=== PATIENT | female | born 1950 | race American Indian/Alaskan Native ===

== ENCOUNTER 2021-07-05 11:43 | Inpatient (IN) | payer OTHER ==
[~2021-07-05] VITALS: Ht 157.5 cm; Wt 78.5 kg
[2021-07-05 11:58] VITALS: BP 179/68
--- NOTE | 2021-07-05 12:51 | NUR ---
BLOODWORK COLLECTED AND WALKED OVER TO LAB
[2021-07-05 13:12] LABS: BASOPHILS % (AUTO) 0.2 % (0.0-2.0); EOSINOPHILS # (AUTO) 0.1 K/uL (0-0.4); EOSINOPHILS % (AUTO) 1.5 % (0.0-4.0); HEMATOCRIT 36.2 % (36-48); HEMOGLOBIN 12.1 g/dL (12.0-16.0); LYMPHOCYTES # (AUTO) 1.9 K/uL (2.5-16.5); LYMPHOCYTES % (AUTO) 29.9 % (20.5-51.1); MEAN CORPUSCULAR HEMOGLOBIN 32 pg (27-31); MEAN CORPUSCULAR HGB CONC 33 g/dL (33-37); MEAN CORPUSCULAR VOLUME 94.5 fL (80-94); MONOCYTES # (AUTO) 0.5 K/uL (0.8-1.0); MONOCYTES % (AUTO) 7.2 % (1.7-9.3); NEUTROPHILS # (AUTO) 3.8 K/uL (1.8-7.7); NEUTROPHILS % (AUTO) 61.2 % (42.2-75.2); PLATELET COUNT (AUTO) 239 K/uL (140-450); RED BLOOD CELL COUNT(AUTO) 3.83 MIL/uL (4.20-5.40); RED CELL DISTRIBUTION WIDTH 13.7 % (11.6-13.7); WHITE BLOOD COUNT (AUTO) 6.3 K/uL (4.8-10.8)
[2021-07-05 13:39] LABS: ALBUMIN 3.4 g/dL (3.4-5.0); ANION GAP 11.5 (8-16); CREATININE 0.7 mg/dL (0.6-1.3); POTASSIUM 4.5 mmol/L (3.5-5.1); TOTAL BILIRUBIN 0.5 mg/dL (0.0-1.0)
[2021-07-05] MEDS ORDERED: NACL 0.9% 1,000 ML IV ONE (14:15)
[2021-07-05] MEDS ORDERED: ASPIRIN 325 MG TAB PO ONE (14:15)
[2021-07-05] MEDS ORDERED: methylPREDNISolone SS 125 MG in WATER STERILE 2 ML IV ONE (15:05)
[2021-07-05] MEDS ORDERED: WATER STERILE 0 ML MC ONE (15:10)
[2021-07-05] MEDS ORDERED: methylPREDNISolone SS 125 MG/2 ML VIAL ONE (15:10)
--- NOTE | 2021-07-05 15:18 | NUR ---
PER TELE NEURO INITIATED; CONNECT ID;[id number]
[2021-07-05] MEDS ORDERED: VITD400 PO (16:30)
[2021-07-05] MEDS ORDERED: ATOR10TA PO (16:30)
[2021-07-05] MEDS ORDERED: CALER120 PO (16:30)
--- NOTE | 2021-07-05 16:38 | NUR ---
70/F BIB WITH C/O HEADACHE, RIGHT ARM WEAKNESS AND CHEST PRESSURE X2 DAYS, REPORTS THROBBING NON RADIATING PAIN THAT IS INTERMITTENT. PATIENT STATES SHE CALLED HER PCP TO INFORM HIM OF HER SYMPTOMS AND WAS REFERRED TO COME TO THE ED. PATIENT DENIES N/V/D, DIZZINESS, SOB, FEVERS OR CHILLS, PATIENT DENIES PAIN AT THIS TIME.
[2021-07-05] MEDS ORDERED: diphenhydrAMINE 50 MG/ML VIAL IVP ONE (18:05)
[2021-07-05] MEDS ORDERED: KCL 20 MEQ/WATER INJ PREMIX 200 ML IV PRN (19:15)
[2021-07-05] MEDS ORDERED: MAG SULF 2000 MG/WATER PREMIX 50 ML IV PRN (19:15)
[2021-07-05] MEDS ORDERED: MORPHINE SULFATE 4 MG/ML SYR IVP PRN (19:15)
[2021-07-05] MEDS ORDERED: ONDANSETRON 4 MG/2 ML VIAL IVP PRN (19:15)
[2021-07-05] MEDS ORDERED: HYDROcodone/APAP 5/325 MG 1 TAB TAB PO PRN (19:15)
[2021-07-05] MEDS ORDERED: POTASSIUM CHLORIDE 10 MEQ TABER PO PRN (19:15)
[2021-07-05] MEDS ORDERED: MAGNESIUM OXIDE 400 MG TAB PO PRN (19:15)
[2021-07-05] MEDS ORDERED: ACETAMINOPHEN 325 MG TAB PO PRN (19:15)
--- NOTE | 2021-07-05 20:00 | NUR ---
PATIENT TAKEN TO CT VIA W/C
--- NOTE | 2021-07-05 22:30 | NUR ---
PATIENT SITTING UP IN CHAIR WITH EYES CLOSED, WILL CONTINUE TO MONITOR. ALL NEEDS MET AT THIS TIME.
--- NOTE | 2021-07-05 23:31 | NUR ---
Pt report given to JAYA ISAAC. Transfer of care at this time.
[2021-07-06 08:56] LABS: HEMATOCRIT 40.7 % (36-48); HEMOGLOBIN 13.5 g/dL (12.0-16.0); LYMPHOCYTES # (AUTO) 1.2 K/uL (2.5-16.5); MEAN CORPUSCULAR HEMOGLOBIN 32 pg (27-31); MEAN CORPUSCULAR HGB CONC 33 g/dL (33-37); MEAN CORPUSCULAR VOLUME 95.4 fL (80-94); MONOCYTES # (AUTO) 0.2 K/uL (0.8-1.0); MONOCYTES % (AUTO) 1.9 % (1.7-9.3); NEUTROPHILS # (AUTO) 8.6 K/uL (1.8-7.7); NEUTROPHILS % (AUTO) 86.1 % (42.2-75.2); PLATELET COUNT (AUTO) 277 K/uL (140-450); RED BLOOD CELL COUNT(AUTO) 4.26 MIL/uL (4.20-5.40); RED CELL DISTRIBUTION WIDTH 14.1 % (11.6-13.7)
[2021-07-06 09:34] LABS: ALBUMIN 3.4 g/dL (3.4-5.0); ANION GAP 15.5 (8-16); CARBON DIOXIDE 23.8 mmol/L (21-32); CREATININE 0.9 mg/dL (0.6-1.3); POTASSIUM 4.3 mmol/L (3.5-5.1); TOTAL BILIRUBIN 0.3 mg/dL (0.0-1.0)
--- NOTE | 2021-07-06 11:53 | NUR ---
BIB WHEELCHAIR FROM [facility] TO ER BED 14
--- NOTE | 2021-07-06 13:00 | NUR ---
Pt moved to bed 14 on [facility]
--- NOTE | 2021-07-06 13:04 | NUR ---
Pt report given to Shakila LAKE from [facility]. Transfer of care at this time.
[2021-07-06] MEDS: DOCUSATE SODIUM 100 MG GELCAP PO SCH (13:06)
--- NOTE | 2021-07-06 13:06 | NUR ---
Pt refused colace at this time. Had a BM today.
--- NOTE | 2021-07-06 15:52 | NUR ---
PATIENT HAS BEEN SCREENED AND CATEGORIZED MODERATE NUTRITION RISK. PATIENT WILL BE SEEN WITHIN 3-5 DAYS OF ADMISSION. / CAROL FIG[address]
--- NOTE | 2021-07-06 19:34 | NUR ---
Pt report given to TIMOTHY LAKE. Transfer of care at this time.
--- NOTE | 2021-07-06 20:00 | NUR ---
Covid swab done and handed to Nury LAKE
--- NOTE | 2021-07-06 22:00 | NUR ---
RESTING WITH EYES CLOSED, RESPIRATIONS REGULAR AND UNLABORED
--- NOTE | 2021-07-07 04:00 | NUR ---
Patient appears to be resting comfortably in bed. Vital Signs within normal limits. Respirations even and unlabored.
--- NOTE | 2021-07-07 07:30 | NUR ---
REPORT RECEIVED FROM TIMOTHY LAKE FOR CONTINUITY OF CARE. PT IS A&OX4. ON ROOM AIR. IV SITE RT HAND 22G, INTACT, PATENT, GOOD BLOOD RETURN. SKIN INTACT, WARM AND DRY. WILL CONTINUE TO MONITOR.
[2021-07-07] MEDS ORDERED: ASPIRIN 325 MG TAB ONE (08:12)
[2021-07-07 08:19] LABS: BASOPHILS % (AUTO) 0.4 % (0.0-2.0); EOSINOPHILS % (AUTO) 0.3 % (0.0-4.0); HEMATOCRIT 37.6 % (36-48); HEMOGLOBIN 12.3 g/dL (12.0-16.0); LYMPHOCYTES # (AUTO) 2.6 K/uL (2.5-16.5); LYMPHOCYTES % (AUTO) 24.3 % (20.5-51.1); MEAN CORPUSCULAR HEMOGLOBIN 31 pg (27-31); MEAN CORPUSCULAR HGB CONC 33 g/dL (33-37); MEAN CORPUSCULAR VOLUME 95.9 fL (80-94); MONOCYTES # (AUTO) 0.7 K/uL (0.8-1.0); MONOCYTES % (AUTO) 6.4 % (1.7-9.3); NEUTROPHILS # (AUTO) 7.2 K/uL (1.8-7.7); NEUTROPHILS % (AUTO) 68.6 % (42.2-75.2); PLATELET COUNT (AUTO) 219 K/uL (140-450); RED BLOOD CELL COUNT(AUTO) 3.93 MIL/uL (4.20-5.40); RED CELL DISTRIBUTION WIDTH 14.2 % (11.6-13.7); WHITE BLOOD COUNT (AUTO) 10.5 K/uL (4.8-10.8)
--- NOTE | 2021-07-07 08:46 | NUR ---
DC PLANNING: CM SPOKE WITH [facility], CM NOT AVAILABLE TO TALK, MESSAGE LEFT THAT NEUROLOGIST IS RECOMMENDING MRI, NEED AUTH AND DIRECTION ON WHERE TO SEND. CM WILL FOLLOW. Addendum: 07/07/21 at 1547 by Essence Beltran CM Called & spoke with Jose Alfredo at [facility], ph [phone] opt 1 fax [phone], states not showing in system to fax face sheet & clinicals, she is the one following pt. Informed UR & going to fax. I faxed order/pt info to Jose Alfredo for MRI. Addendum: 07/08/21 at 1659 by Kyra Holguin CM DC PLANNING: CM SPOKE WITH JOSE ALFREDO AT [facility], NO CONTRACTED FACILITIES IN NETWORK ABLE TO DO MRI. CM WILL FOLLOW. Addendum: 07/12/21 at 1502 by Kyra Holguin CM DC PLANNING: DANA SPOKE WITH DIANA AT [facility] ([phone] OPT 1), NO CONTRACTED HOSPITALS YET TO TRANSFER THE PATIENT TO FOR AN MRI. DANA WILL FOLLOW. Addendum: 07/13/21 at 1738 by Kyra Holguin DC PLANNING: DANA SPOKE WITH THE VP DATA DR MCKINNEY AT [facility], NO CONTRACTED FACILITIES ARE ABLE TO ACCEPT THE PATIENT FOR MRI. DR KELLOGG SPOKE WITH DR ALEXANDER, HE WANTS THE MRI DONE BEFORE PATIENT DISCHARGES. DANA ATTEMPTED TO REACH [facility] TO ASK FOR AN AUTH TO SEND THE PATIENT TO [place] FOR HER MRI. DANA WILL FOLLOW UP. Addendum: 07/14/21 at 1133 by Kyra Holguin CM DC PLANNING: [facility] AUTH TO ARRANGE AN MRI AT [place] FOR THE PATIENT. AUTH # [id number], TRANSPORT AUTH WILL BE PROVIDED ONCE [facility] HAS A SCHEDULED TIME FOR CARDIOVASCULAR SONOGRAPHER. CM SPOKE WITH [facility], THEY WILL FAX THE MRI FORM, CM WILL THEN FAX COMPLETED CLINICAL PACKET TO THEM, AND WILL FOLLOW. Addendum: 07/14/21 at 1402 by Kyra Holguin CM DC PLANNING: PATIENT TO BE PICKED UP BY [facility] BLS LEVEL AT 1550, [facility] SCHEDULED FOR A WAIT AND RETURN TRANSPORT. AUTH NUMBER FOR [facility] PER JOSE ALFREDO AT [facility] [id number], JOSE ALFREDO WILL FAX THE AUTH DIRECTLY TO [facility]. ABOVE ENDORSED TO PATIENTS NURSE ASIA CM TO FOLLOW.
[2021-07-07] MEDS ORDERED: ASPIRIN 325 MG TABEC PO SCH (09:00)
[2021-07-07] MEDS: ASPIRIN 325 MG TABEC PO SCH (09:02)
[2021-07-07] MEDS: DOCUSATE SODIUM 100 MG GELCAP PO SCH (09:02)
--- NOTE | 2021-07-07 09:05 | NUR ---
PATIENT MOVED VIA GURNEY TO BED 3.
[2021-07-07 09:18] LABS: ALBUMIN 2.9 g/dL (3.4-5.0); ANION GAP 12.9 (8-16); CARBON DIOXIDE 27.2 mmol/L (21-32); CREATININE 0.9 mg/dL (0.6-1.3); POTASSIUM 4.1 mmol/L (3.5-5.1); TOTAL BILIRUBIN 0.3 mg/dL (0.0-1.0)
--- NOTE | 2021-07-07 09:24 | NUR ---
PT EATING BREAKFAST TRAY
--- NOTE | 2021-07-07 10:30 | NUR ---
Patient resting in bed. Vital Signs within normal limits. Respirations even and unlabored. Chest rise is symmetrical. Will continue to monitor.
--- NOTE | 2021-07-07 12:14 | NUR ---
PT EATING LUNCH TRAY
--- NOTE | 2021-07-07 12:17 | NUR ---
CALLED PT'S QUINTON CARUSO. UPDATED ON PT STATUS, ALL QUESTIONS AND CONCERNS ANSWERED AT THIS TIME.
--- NOTE | 2021-07-07 14:00 | NUR ---
Patient resting in bed. Vital Signs within normal limits. Respirations even and unlabored. Chest rise is symmetrical. Will continue to monitor.
--- NOTE | 2021-07-07 16:15 | NUR ---
Patient resting in bed. Vital Signs within normal limits. Respirations even and unlabored. Chest rise is symmetrical. Will continue to monitor.
--- NOTE | 2021-07-07 18:08 | NUR ---
PT EATING DINNER TRAY
--- NOTE | 2021-07-07 19:24 | NUR ---
Pt report given to TIMOTHY LAKE. Transfer of care at this time.
--- NOTE | 2021-07-07 20:00 | NUR ---
AWAKE, SPEAKING ON CELL PHONE IN NAD
--- NOTE | 2021-07-07 20:15 | NUR ---
PTS DAUGHTER CALLED AND WAS UPDATED. WOULD LIKE TO BE INFORMED WHEN PT TRANSFERED FOR MRI
--- NOTE | 2021-07-07 22:05 | NUR ---
REPORT CALLED TO JAYA GONZALEZ
--- NOTE | 2021-07-07 22:20 | NUR ---
TRANSFERED TO [address] VIA GURNEY ACCOMPANIED BY ERT & RN. ATTACHED TO WIRER MAINTENANCE, REMAINS SR.
--- NOTE | 2021-07-08 01:11 | NUR ---
PATIENT TO FLOOR 2225 AWAKE ALERT NO C/O PATIENT STATES PUT GOWN ON PATIENT AND FALL RISK SLIPPERS. PATIENT CAN AMBULATE WELL STEADY ON FEET. PATIENT IS ROOM AIR, SAT 97 %. PATIENT LUNGS DIMINISH TO LISTEN SKIN INTACT. SINUS ON MONITOR. PATIENT HAS INFLUENZA B BUT DON,T HEAR A COUGH.. PATIENT IS COVID _.NO DISTRESS NOTED. PATIENT CAME FROM [facility] 2225.
[2021-07-08 04:00] VITALS: BP 127/69
[2021-07-08 06:24] LABS: BASOPHILS % (AUTO) 0.3 % (0.0-2.0); EOSINOPHILS # (AUTO) 0.1 K/uL (0-0.4); EOSINOPHILS % (AUTO) 1.2 % (0.0-4.0); HEMATOCRIT 36.9 % (36-48); HEMOGLOBIN 12.4 g/dL (12.0-16.0); LYMPHOCYTES # (AUTO) 2.2 K/uL (2.5-16.5); LYMPHOCYTES % (AUTO) 28.4 % (20.5-51.1); MEAN CORPUSCULAR HEMOGLOBIN 32 pg (27-31); MEAN CORPUSCULAR HGB CONC 34 g/dL (33-37); MONOCYTES # (AUTO) 0.5 K/uL (0.8-1.0); MONOCYTES % (AUTO) 6.5 % (1.7-9.3); NEUTROPHILS % (AUTO) 63.6 % (42.2-75.2); PLATELET COUNT (AUTO) 238 K/uL (140-450); RED BLOOD CELL COUNT(AUTO) 3.89 MIL/uL (4.20-5.40); RED CELL DISTRIBUTION WIDTH 14.2 % (11.6-13.7); WHITE BLOOD COUNT (AUTO) 7.8 K/uL (4.8-10.8)
[2021-07-08 07:01] LABS: ANION GAP 11.7 (8-16); CARBON DIOXIDE 28.2 mmol/L (21-32); CREATININE 0.8 mg/dL (0.6-1.3); POTASSIUM 3.9 mmol/L (3.5-5.1); TOTAL BILIRUBIN 0.3 mg/dL (0.0-1.0)
--- NOTE | 2021-07-08 07:30 | NUR ---
RECEIVED REPORT FROM SEED YEAST OPERATOR NURSE
[2021-07-08 08:00] VITALS: BP 154/61
--- NOTE | 2021-07-08 09:20 | NUR ---
DUE MEDS GIVEN. TOLERATED WELL, NO WEAKNESS NOTED, NO C/O HEADACHE
[2021-07-08] MEDS: DOCUSATE SODIUM 100 MG GELCAP PO SCH (09:33)
[2021-07-08] MEDS: ASPIRIN 325 MG TABEC PO SCH (09:33)
--- NOTE | 2021-07-08 11:25 | NUR ---
SEEN AND EXAMINED BY DR STEWART, UPDATED ON POC
[2021-07-08 12:00] VITALS: BP 152/52
[2021-07-08] MEDS ORDERED: PANTOPRAZOLE 40 MG INJ VIAL ONE (13:21)
--- NOTE | 2021-07-08 13:30 | NUR ---
DR STEWART SPOKE TO PT'S DAUGHTER ZULY ON PHONE TO GIVE UPDATE
--- NOTE | 2021-07-08 15:28 | NUR ---
Discharge Planning: ANA has contacted [facility] ([phone] option 1) 4 times and left message regarding pt's need for MRI. ANA received call back from [facility] stating that [facility] has no record of this patient being admitted to [facility] [place]. ANA reviewed admitting documentation over phone with [facility]. ANA has asked [facility] Admitting to assist with notifying [facility]. [facility] stated that she cannot assist with anything until patient is showing in her system. ANA reviewed notes that clinicals have been faxed to [facility]. Addendum: 07/08/21 at 1551 by Donna Sandoval CM ANA received call from [facility]; pt was found in their system; Tracking Number: [id number]. VOLTMETER OPERATOR has asked [facility] to work on finding a hospital where the pt can have MRI.
[2021-07-08 16:00] VITALS: BP 165/71
[2021-07-08] MEDS ORDERED: VERAPAMIL 120 MG CAPER PO SCH (17:50)
--- NOTE | 2021-07-08 18:48 | NUR ---
NO RESPIRATORY DISTRESS, NO S/S OF PAIN. WILL ENDORSE TO NEXT SHIFT
[2021-07-08 20:00] VITALS: BP 132/63
--- NOTE | 2021-07-08 20:00 | NUR ---
RECEIVED PATIENT FROM DAY SHIFT NURSE. PATIENT IN BED, NO RESPIRATORY DISTRESS NOTED
[2021-07-08] MEDS: ENOXAPARIN 40 MG/0.4 ML SYR SUBQ SCH (22:30)
[2021-07-08] MEDS: VERAPAMIL 40 MG TAB PO SCH (22:32)
[2021-07-09] VITALS: BP 136/57
[2021-07-09 04:00] VITALS: BP 130/61
[2021-07-09 06:13] LABS: BASOPHILS % (AUTO) 0.3 % (0.0-2.0); EOSINOPHILS # (AUTO) 0.1 K/uL (0-0.4); EOSINOPHILS % (AUTO) 1.4 % (0.0-4.0); HEMATOCRIT 35.6 % (36-48); HEMOGLOBIN 12.2 g/dL (12.0-16.0); MEAN CORPUSCULAR HEMOGLOBIN 32 pg (27-31); MEAN CORPUSCULAR HGB CONC 34 g/dL (33-37); MEAN CORPUSCULAR VOLUME 94.2 fL (80-94); MONOCYTES # (AUTO) 0.5 K/uL (0.8-1.0); MONOCYTES % (AUTO) 6.7 % (1.7-9.3); NEUTROPHILS # (AUTO) 4.2 K/uL (1.8-7.7); NEUTROPHILS % (AUTO) 61.6 % (42.2-75.2); PLATELET COUNT (AUTO) 253 K/uL (140-450); RED BLOOD CELL COUNT(AUTO) 3.78 MIL/uL (4.20-5.40); WHITE BLOOD COUNT (AUTO) 6.8 K/uL (4.8-10.8)
[2021-07-09 06:51] LABS: ALBUMIN 2.9 g/dL (3.4-5.0); ANION GAP 11.3 (8-16); CARBON DIOXIDE 27.6 mmol/L (21-32); CREATININE 0.8 mg/dL (0.6-1.3); POTASSIUM 3.9 mmol/L (3.5-5.1); TOTAL BILIRUBIN 0.3 mg/dL (0.0-1.0)
--- NOTE | 2021-07-09 07:40 | NUR ---
RECVEIVED PT FROM NIGHT RN, PT IS AWAKE AND SEATED ON THE BED, SIDE RAILS ARE UP ANSD CALL LIGHT WITHIN REACH, IV LINE NOTED ON THE LEFT HAND G. 24 ON SALINE LOCK, PT IS ON RA, NO SIGN OF DISTRESS NOTED AND WILL CONTINUE TO MONITOR PT.
[2021-07-09 08:00] VITALS: BP 158/72
[2021-07-09] MEDS: DOCUSATE SODIUM 100 MG GELCAP PO SCH (08:46)
[2021-07-09] MEDS: ATORVASTATIN 20 MG TAB PO SCH (08:47)
[2021-07-09] MEDS: ASPIRIN 325 MG TABEC PO SCH (08:47)
[2021-07-09] MEDS: ENOXAPARIN 40 MG/0.4 ML SYR SUBQ SCH (08:47)
[2021-07-09] MEDS: VERAPAMIL 40 MG TAB PO SCH ×2 (08:50→21:36)
--- NOTE | 2021-07-09 08:50 | NUR ---
PT WAS GIVEN THE SCHEDULED AM MEDICATIONS NOW, TOLERATED AND WILL CONTINUE TO MONITOR PT.
[2021-07-09 12:00] VITALS: BP 134/60
--- NOTE | 2021-07-09 14:15 | NUR ---
PT IS SLEEPING NOW AND NO SIGN OF DISTRESS NOTED.
[2021-07-09 16:00] VITALS: BP 158/76
--- NOTE | 2021-07-09 18:00 | NUR ---
PT IS EATING HER DINNER NOW.
--- NOTE | 2021-07-09 19:33 | NUR ---
ENDORSED PT O NIGHT RN FOR CONTINUITY OF CARE.
[2021-07-09 20:00] VITALS: BP 140/58
--- NOTE | 2021-07-09 21:40 | NUR ---
DUE MEDICATION GIVEN. PATIENT AWAKE, ALERT ON ROOM AIR. NO SOB NOTED. SAFETY MEASURES IN PLACE. CALL LIGHT WITHIN REACH.
[2021-07-10] VITALS: BP 148/70
[2021-07-10 04:00] VITALS: BP 152/62
[2021-07-10 06:53] LABS: BASOPHILS % (AUTO) 0.2 % (0.0-2.0); EOSINOPHILS # (AUTO) 0.1 K/uL (0-0.4); EOSINOPHILS % (AUTO) 1.8 % (0.0-4.0); HEMATOCRIT 38.9 % (36-48); HEMOGLOBIN 13.1 g/dL (12.0-16.0); LYMPHOCYTES # (AUTO) 1.9 K/uL (2.5-16.5); LYMPHOCYTES % (AUTO) 27.9 % (20.5-51.1); MEAN CORPUSCULAR HEMOGLOBIN 32 pg (27-31); MEAN CORPUSCULAR HGB CONC 34 g/dL (33-37); MEAN CORPUSCULAR VOLUME 94.3 fL (80-94); MONOCYTES # (AUTO) 0.5 K/uL (0.8-1.0); MONOCYTES % (AUTO) 6.9 % (1.7-9.3); NEUTROPHILS # (AUTO) 4.3 K/uL (1.8-7.7); NEUTROPHILS % (AUTO) 63.2 % (42.2-75.2); PLATELET COUNT (AUTO) 247 K/uL (140-450); RED BLOOD CELL COUNT(AUTO) 4.13 MIL/uL (4.20-5.40); RED CELL DISTRIBUTION WIDTH 13.9 % (11.6-13.7); WHITE BLOOD COUNT (AUTO) 6.8 K/uL (4.8-10.8)
[2021-07-10 07:15] LABS: ALBUMIN 2.8 g/dL (3.4-5.0); ANION GAP 11.3 (8-16); CARBON DIOXIDE 28.6 mmol/L (21-32); CREATININE 0.8 mg/dL (0.6-1.3); POTASSIUM 3.9 mmol/L (3.5-5.1); TOTAL BILIRUBIN 0.4 mg/dL (0.0-1.0)
--- NOTE | 2021-07-10 07:35 | NUR ---
ENDORSED PATIENT TO AM NURSE FOR CONTINUITY OF CARE.
--- NOTE | 2021-07-10 07:40 | NUR ---
RECEIVED REPORT FROM TUBE PUSHER FOR CONTINUITY OF CARE. PATIENT ALERT AWAKE ORIENTED NOT IN ANY DISTRESS NOTED. WITH SALINE LOCK ON HER LEFT WRIST G. 24 DRY AND INTACT. DENIES ANY PAIN AT THIS TIME. ON MONITOR SHOWS SR. BED IN LOW POSITION. CALL LIGHT WITHIN REACH. NEEDS ATTENDED. WILL CONTINUE TO MONITOR.
[2021-07-10 08:00] VITALS: BP 154/72
[2021-07-10] MEDS: DOCUSATE SODIUM 100 MG GELCAP PO SCH (08:38)
[2021-07-10] MEDS: VERAPAMIL 40 MG TAB PO SCH ×2 (08:39→21:50)
[2021-07-10] MEDS: ATORVASTATIN 20 MG TAB PO SCH (08:39)
[2021-07-10] MEDS: ASPIRIN 325 MG TABEC PO SCH (08:40)
[2021-07-10] MEDS: ENOXAPARIN 40 MG/0.4 ML SYR SUBQ SCH (08:40)
--- NOTE | 2021-07-10 09:00 | NUR ---
DUE MEDICATION GIVEN AND TOLERATED WELL.
[2021-07-10 12:00] VITALS: BP 140/58
--- NOTE | 2021-07-10 13:32 | NUR ---
PATIENT RESTING IN BED, DENIES CHEST PAIN AND HEADACHE. WILL CONTINUE TO MONITOR.
--- NOTE | 2021-07-10 14:16 | NUR ---
07/10/21 RD INITIAL ASSESSMENT COMPLETED PLEASE REFER TO NUTRITION ASSESSMENT UNDER CARE ACTIVITY FOR ESTIMATED NUTRITIONAL NEEDS. RD RECOMMENDATIONS: 1. CONTINUE CARDIAC DIET TOLERATED 2. RD TO F/U IN 7 DAYS; LOW RISK KATTY JACOB, RD
[2021-07-10 16:00] VITALS: BP 148/57
--- NOTE | 2021-07-10 19:39 | NUR ---
REPORT GIVEN TO THE DRILL SHARPENER FOR CONTINUITY OF CARE. PATIENT IN STABLE CONDITION.
--- NOTE | 2021-07-10 19:43 | NUR ---
RECEIVED REPORT FROM AM SHIFT FOR CONTINUITY OF CARE. PATIENT IN BED AWAKE, ALERT AND VERBALLY RESPONSIVE. ABLE TO MAKE NEEDS KNOWN. NOT IN DISTRESS. DENIES ANY PAIN AT THIS TIME. BED IN LOW POSITION. ALL SAFETY MEASURES IN PLACE. CALL LIGHT WITHIN REACH. WILL CONTINUE WITH CURRENT PLAN OF CARE.
[2021-07-10 20:00] VITALS: BP 127/58
--- NOTE | 2021-07-10 21:51 | NUR ---
ALL DUE MEDICATIONS GIVEN PER MD ORDER. TOLERATED WELL. NO ASE NOTED. CALL LIGHT WITHIN REACH. WILL CONTINUE TO MONITOR.
--- NOTE | 2021-07-11 01:40 | NUR ---
CHECKED ON PATIENT. PATIENT ASLEEP WITH VISIBLE CHEST RISING AND FALLING. ALL SAFETY MEASURES IN PLACE. CALL LIGHT WITHIN REACH. WILL CONTINUE TO MONITOR.
--- NOTE | 2021-07-11 03:36 | NUR ---
ROUNDED ON PATIENT. STABLE AND ASLEEP. BED IN LOW POSITION. BREATHING EVEN AND UNLABORED WITH NO SOB NOTED. ALL SAFETY MEASURES IN PLACE. CALL LIGHT WITHIN REACH. WILL CONTINUE TO MONITOR.
[2021-07-11 04:00] VITALS: BP 143/66
--- NOTE | 2021-07-11 06:15 | NUR ---
Patient's Plan of Care was discussed and reviewed with ALARM SECURITY OR SURVEILLANCE MONITOR: GIOVANNI/THERESE LAKE
--- NOTE | 2021-07-11 07:33 | NUR ---
ENDORSED PATIENT REPORT TO AM SHIFT NURSE FOR CONTINUITY OF CARE. PATIENT IS STABLE.
[2021-07-11 08:00] VITALS: BP 151/76
[2021-07-11] MEDS: VERAPAMIL 40 MG TAB PO SCH ×2 (09:05→21:00)
[2021-07-11] MEDS: DOCUSATE SODIUM 100 MG GELCAP PO SCH (09:05)
[2021-07-11] MEDS: ASPIRIN 325 MG TABEC PO SCH (09:05)
[2021-07-11] MEDS: ATORVASTATIN 20 MG TAB PO SCH (09:06)
[2021-07-11] MEDS: ENOXAPARIN 40 MG/0.4 ML SYR SUBQ SCH (09:06)
--- NOTE | 2021-07-11 09:12 | NUR ---
ADMINISTERED ALL SCHEDULED MEDICATIONS. EDUCATED PT REGARDING MEDS ADMINISTERED. PT VERBALIZED UNDERSTANDING. WILL CONTINUE TO MONITOR.
--- NOTE | 2021-07-11 11:10 | NUR ---
Discharge Planning: LUSTERER placed call to [facility] ([phone] option 1) LUSTERER was referred to DANA Cardenas today. Theresa stated that she would take down the patients information and would call back later.
--- NOTE | 2021-07-11 13:24 | NUR ---
DID ROUND ON PT. PT IN BED WATCHING TELEVISION AT THIS TIME. NO COMPLAINTS OF PAIN OR DISCOMFORT REPORTED. RESPIRATIONS ARE EVEN AND UNLABORED. WILL CONTINUE TO MONITOR.
[2021-07-11 16:00] VITALS: BP 140/65
--- NOTE | 2021-07-11 16:23 | NUR ---
PT CALLED TO ASK FOR MORE WATER. GAVE PT WATER. ASKED PT IF SHE NEEDED ANYTHING. PT STATED "NO IM OK". NO COMPLAINTS OF PAIN OR DISCOMFORT AT THIS TIME. RESPIRATIONS ARE EVEN AND UNLABORED. WILL CONTINUE TO MONITOR.
--- NOTE | 2021-07-11 19:28 | NUR ---
ENDORSED PT TO LEAD PRINTER NURSE FOR CONTINUITY OF CARE. PT IS STABLE.
[2021-07-12 05:53] VITALS: BP 131/62
--- NOTE | 2021-07-12 07:25 | NUR ---
RECEIVED REPORT FROM WATER ATTENDANT NURSE FOR CONTINUITY OF CARE. PT IN BED AT THIS TIME WATCHING TELEVISION. RESPIRATIONS ARE EVEN AND UNLABORED. NO SIGNS OF DISTRESS NOTED. NO COMPLAINTS OF PAIN OR DISCOMFORT REPORTED. PT HAS IV TO L WRIST, 24G, SALINE LOCKED. PT IS ABLE TO AMBULATE WITH ASSISTANCE. ENCOURAGED PT TO CALL FOR ASSISTANCE FOR AMBULATION. CALL LIGHT WITHIN REACH. ALL SAFETY MEASURES IN PLACE. WILL CONTINUE TO MONITOR.
[2021-07-12 08:00] VITALS: BP 155/59
[2021-07-12] MEDS: ASPIRIN 325 MG TABEC PO SCH (09:38)
[2021-07-12] MEDS: DOCUSATE SODIUM 100 MG GELCAP PO SCH (09:38)
--- NOTE | 2021-07-12 09:38 | NUR ---
ADMINISTERED ALL SCHEDULED MEDICATIONS. EDUCATED PT REGARDING MEDS ADMINISTERED. ANSWERED ALL QUESTIONS. PT TOLERATED WELL. WILL CONTINUE TO MONITOR.
[2021-07-12] MEDS: VERAPAMIL 40 MG TAB PO SCH ×2 (09:39→21:29)
[2021-07-12] MEDS: ENOXAPARIN 40 MG/0.4 ML SYR SUBQ SCH (09:39)
[2021-07-12] MEDS: ATORVASTATIN 20 MG TAB PO SCH (09:39)
--- NOTE | 2021-07-12 13:54 | NUR ---
DID ROUNDS ON PT. PT IN HER ROOM SITTING ON CHAIR WATCHING TELEVISION. RESPIRATIONS ARE EVEN AND UNLABORED. NO SIGNS OF DISTRESS NOTED. NO COMPLAINTS OF PAIN OR DISCOMFORT NOTED. CALL LIGHT WITHIN REACH. ALL SAFETY MEASURES IN PLACE. WILL CONTINUE TO MONITOR.
--- NOTE | 2021-07-12 16:00 | NUR ---
DID ROUNDS ON PT. ASSISTED PT TO REST ROOM. NO COMPLAINTS OF PAIN OR DISCOMFORT. WILL CONTINUE TO MONITOR.
--- NOTE | 2021-07-12 19:05 | NUR ---
PT IS AWAKE AND ALERT. IN HER ROOM WATCHING TELEVISION. NO COMPLAINTS OF PAIN OR DISCOMFORT. RESPIRATIONS ARE EVEN AND UNLABORED. NO SIGNS OF DISTRESS NOTED. WILL ENDORSE TO CLAMPER NURSE. PT IS STABLE.
[2021-07-12 20:00] VITALS: BP 126/58
[2021-07-13 08:00] VITALS: BP 156/62
[2021-07-13] MEDS: DOCUSATE SODIUM 100 MG GELCAP PO SCH (09:35)
[2021-07-13] MEDS: ASPIRIN 325 MG TABEC PO SCH (09:35)
[2021-07-13] MEDS: ENOXAPARIN 40 MG/0.4 ML SYR SUBQ SCH (09:35)
[2021-07-13] MEDS: ATORVASTATIN 20 MG TAB PO SCH (09:35)
[2021-07-13] MEDS: VERAPAMIL 40 MG TAB PO SCH ×2 (09:35→20:51)
--- NOTE | 2021-07-13 09:36 | NUR ---
SCHEDULED MEDICATIONS DUE GIVEN. WILL CONTINUE TO MONITOR.
--- NOTE | 2021-07-13 13:00 | NUR ---
PATIENT LYING DOWN IN BED TALKING ON THE PHONE, NO DISTRESS NOTED. DENIES ANY PAIN. WILL CONTINUE TO MONITOR.
[2021-07-13 16:00] VITALS: BP 143/51
--- NOTE | 2021-07-13 19:30 | NUR ---
RECEIVED PT LYING IN BED, AAOX4. DENIES HEADACHE/DIZZINESS. ABLE TO FOLLOW COMMANDS. NO FACIAL DROOP NOTED. NOTED RIGHT HAND HEAD RESIDENT IS WEAKER THAN THE LEFT. NO ARM DRIFT NOTED. ABLE TO MOVE ALL EXTREMITIES. DENIES CHEST PAIN/PRESSURE. DENIES ABDOMINAL DISCOMFORT. BOWEL SOUNDS ACTIVE. LAST BM TODAY. VOIDS FREELY. W/ ECCHYMOSIS ON BUE, ALYSIA. IV SITE ON THE RFA GAUGE 24 IS PATENT AND INTACT. SIDE RAILS UPX2. CALL LIGHT ON REACH. BED ON THE LOWEST POSITION. ZP=826/50, ND=71, O2 SAT=96% RA, RR=18, TEMP=98.2. WILL CONT TO MONITOR
[2021-07-13 20:00] VITALS: BP 134/50
--- NOTE | 2021-07-14 | NUR ---
PT LYING IN BED, HAS HER EYES CLOSED, EASILY AROUSABLE TO VERBAL STIMULI. NO C/O PAIN AND SOB. NEEDS ARE ATTENDED. CALL LIGHT ON REACH.
[2021-07-14 04:16] VITALS: BP 118/58
--- NOTE | 2021-07-14 06:08 | NUR ---
PATIENT AAOX4, NO C/O PAIN AND SOB. IV SITE PATENT AND INTACT. NEEDS ARE ATTENDED. CALL LIGHT ON REACH. WILL CONT TO MONITOR
--- NOTE | 2021-07-14 07:30 | NUR ---
RECEIVED ENDORSEMENT FROM GLASS WOOL BLANKET MACHINE FEEDER NURSE FOR CONTINUITY OF CARE. PT AWAKE SITTING ON EDGE OF BED. ALL SAFETY MEASURE IN PLACE.
[2021-07-14] MEDS: DOCUSATE SODIUM 100 MG GELCAP PO SCH (08:47)
[2021-07-14] MEDS: ASPIRIN 325 MG TABEC PO SCH (08:48)
[2021-07-14] MEDS: ATORVASTATIN 20 MG TAB PO SCH (08:48)
[2021-07-14] MEDS: ENOXAPARIN 40 MG/0.4 ML SYR SUBQ SCH (08:50)
[2021-07-14] MEDS: VERAPAMIL 40 MG TAB PO SCH ×2 (08:53→20:43)
--- NOTE | 2021-07-14 08:56 | NUR ---
GIVEN ALL DUE MEDICATION TOLERATED WELL.
--- NOTE | 2021-07-14 11:00 | NUR ---
PT ALERT ASK TO SIGN INFORMATION REQUIRED FOR HER MRI.
--- NOTE | 2021-07-14 13:00 | NUR ---
PT ON BED RESTING NOT ON ANY DISTRESS OR DISCOMFORT. NO COMPLAIN OF CHEST PAIN. ALL SAFETY MEASURE IN PLACE.
--- NOTE | 2021-07-14 14:21 | NUR ---
INFORM PT THAT SHE GOING TO BE HISTORY FACULTY MEMBER AT 3:15 FOR HER MRI PROCEDURE AT [facility] PT VERBALIZED UNDERSTANDING.
--- NOTE | 2021-07-14 15:08 | NUR ---
PT ALERT AND ORIENTED ON STABLE CONDITION TRANSPORTED TO [facility] VIA GURNEY ACCOMPANIED BY 2 AMBULANCE STAFF.
[2021-07-14 16:00] VITALS: BP 125/66
--- NOTE | 2021-07-14 17:23 | NUR ---
PT ALERT ORIENTED BACK FROM APPOINTMENT AT [facility] FOR HER MRI. NOT ON ANY DISCOMFORT.
--- NOTE | 2021-07-14 18:46 | NUR ---
PT ON BED EATING DINNER NOT ON ANY DISTRESS OR DISCOMFORT. CALL LIGHT WITH IN EASY REACH. ALL SAFETY MEASURE IN PLACE. NO COMPLAIN OF CHEST PAIN.
--- NOTE | 2021-07-14 19:22 | NUR ---
ENDORSE TO MOBILE UI DESIGNER NURSE FOR CONTINUITY OF CARE.
--- NOTE | 2021-07-14 19:24 | NUR ---
RECEIVED PATIENT REPORT FROM AM SHIFT NURSE FOR CONTINUITY OF CARE. PATIENT IN BED AWAKE, ALERT AND VERBALLY RESPONSVIE. ABLE TO VERBALIZED NEEDS. A0X4. BREATHING EVEN AND UNLABORED WITH NO SOB NOTED. NOT IN DISTRESS. DENIES ANY PAIN AT THIS TIME. ALL SAFETY MEASURES IN PLACE. CALL LIGHT WITHIN REACH. WILL CONTINUE WITH CURRENT PLAN OF CARE.
--- NOTE | 2021-07-14 20:50 | NUR ---
ALL DUE MEDICATIONS GIVEN PER MD ORDER. TOLERATED WELL. NO ASE NOTED. PATIENT DENIES ANY PAIN AT THIS TIME. CALL LIGHT WITHIN REACH. WILL CONTINUE TO MONITOR.
--- NOTE | 2021-07-14 23:05 | NUR ---
ROUNDED ON PATIENT. SLEEPING WELL WITH VISIBLE CHEST RISING AND FALLING. NO SOB NOTED. CALL LIGHT WITHIN REACH. WILL CONTINUE TO MONITOR.
--- NOTE | 2021-07-15 01:05 | NUR ---
PATIENT SLEEPING WELL. NO SOB NOTED. CALL LIGHT WITHIN REACH. WILL CONTINUE TO MONITOR.
--- NOTE | 2021-07-15 03:01 | NUR ---
CHECKED ON PATIENT. SLEEPING WELL WITH VISIBLE CHEST RISING AND FALLING. NO SOB NOTED. CALL LIGHT WITHIN REACH. WILL CONTINUE TO MONITOR.
[2021-07-15 04:00] VITALS: BP 128/59
--- NOTE | 2021-07-15 05:32 | NUR ---
PATIENT ASLEEP. RESPIRATION EVEN AND UNLABORED WITH NO SOB NOTED. ALL SAFETY MEASURES IN PLACE. CALL LIGHT WITHIN REACH. WILL CONTINUE TO MONITOR.
--- NOTE | 2021-07-15 07:07 | NUR ---
ENDORSED PATIENT REPORT TO AM SHIFT NURSE FOR CONTINUITY OF CARE. PATIENT IS STABLE.
--- NOTE | 2021-07-15 07:08 | NUR ---
[id number] ENDORSEMENT FROM QUALITY REP NURSE FOR CONTINUITY OF CARE.
--- NOTE | 2021-07-15 08:00 | NUR ---
Patient's Plan of Care was discussed and reviewed with INSIDE SALES RECRUITER: ASIA Fatima
[2021-07-15] MEDS: VERAPAMIL 40 MG TAB PO SCH (08:24)
[2021-07-15] MEDS: ATORVASTATIN 20 MG TAB PO SCH (08:25)
[2021-07-15] MEDS: ASPIRIN 325 MG TABEC PO SCH (08:25)
[2021-07-15] MEDS: DOCUSATE SODIUM 100 MG GELCAP PO SCH (08:26)
[2021-07-15] MEDS: ENOXAPARIN 40 MG/0.4 ML SYR SUBQ SCH (08:28)
--- NOTE | 2021-07-15 08:32 | NUR ---
GIVEN ALL DUE MEDICATION TOLERATED WELL.
--- NOTE | 2021-07-15 10:30 | NUR ---
PT ON BED RESTING NOT ON ANY DISTRESS OR DISCOMFORT. NO MRI RESULT. DENIES PAIN. NO SIGN AND SYMPTOMS OF BLEEDING. ALL SAFETY MEASURE IN PLACE.
[2021-07-15 12:00] VITALS: BP 130/60
--- NOTE | 2021-07-15 12:44 | NUR ---
PT ON BED EATING LUNCH. DENIES PAIN OR ANY DISCOMFORT JUST SAYING THAT SHE HOPE EVERY THING IS OKAY AND SHE CANT GO HOME. ALL SAFETY MEASURE IN PLACE.
[2021-07-15] MEDS ORDERED: ATOR20TA40 PO (15:56)
[2021-07-15] MEDS ORDERED: ASPI-1206 PO (15:56)
--- NOTE | 2021-07-15 16:00 | NUR ---
INFORM PT OF DISCHARGE ORDER FROM DR. HERNANDEZ.
--- NOTE | 2021-07-15 16:00 | NUR ---
PT ALERT ORIENTED ABLE TO MAKE NEEDS KNOWN. ON STABLE CONDITION GIVEN DISCHARGE INSTRUCTION AND PACKET VERBALIZING UNDERSTANDING. UNDERSTANDING. ALL BELONGING TAKEN. IV DISCONTINUED WITH CATHETER INTACT. NAME BAND REMOVE. WHEEL PT TO THEIR PRIVATE VEHICLE. Addendum: 07/15/21 at 1827 by Claudette Ying LVN WRONG TIME TO ENTER.
--- NOTE | 2021-07-15 16:19 | NUR ---
Discharge Planning: Order for home healthcare faxed to [facility] ([phone] p.[phone]). CONTRACT MAIL CARRIER will follow up to see which agency this has been assigned to.
--- NOTE | 2021-07-15 18:00 | NUR ---
PT ALERT ORIENTED ABLE TO MAKE NEEDS KNOWN. ON STABLE CONDITION GIVEN DISCHARGE INSTRUCTION AND PACKET VERBALIZING UNDERSTANDING. UNDERSTANDING. ALL BELONGING TAKEN. IV DISCONTINUED WITH CATHETER INTACT. NAME BAND REMOVE. WHEEL PT TO THEIR PRIVATE VEHICLE.
== END 2021-07-15 18:55 | disposition home or self-care (01) | DRG 69 ==
LOC: MED 11:43 → UNDOADMOB 19:18 → MTU 19:18 → UNDOADMOB 07-08 12:37 → MTU 07-08 12:37 → OBSVTOIN 07-08 12:39 → MTU 07-09 12:42 → OBSVTOIN 07-10 12:37 → INTOOBSV 07-10 12:37 → UNDODISIN 07-15 18:15
PROVIDERS: ADMIT Student in an Organized Health Care Education/Training Program; ATTEND Student in an Organized Health Care Education/Training Program
DX: G45.9 Transient cerebral ischemic attack, unspecified (principal); I10 Essential (primary) hypertension; E78.5 Hyperlipidemia, unspecified; Z20.822 Contact with and (suspected) exposure to COVID-19; G43.909 Migraine, unspecified, not intractable, without status migrainosus; Z88.0 Allergy status to penicillin; Z91.013 Allergy to seafood; Z79.899 Other long term (current) drug therapy
CPT/HCPCS: 36415; 70450; 71045; 80053; 82607; 83036; 84484; 85025; 87081; 93005; 93880; 97116; C9113; G0378; J1200; J1650; J2930; J3480; Q0092; Q9967